=== PATIENT | female | born 1935 | race Caucasian/White ===

== ENCOUNTER 2016-03-21 08:52 | Emergency (ER) | payer MEDICARE, OTHER ==
--- NOTE | 2016-03-21 09:00 | ER Document Report ---
ED General - General Stated Complaint: FALL/NO COMPLAINT TRAVEL OUTSIDE OF THE [place] IN LAST 30 DAYS: No - HPI Patient complains to provider of: fall Notes: Patient is a resident of a local snf had a possible unwitnessed fall patient was found sitting on the floor by the staff patient is unaware if she fell or not. The staff at the snf is concerned that the patient may take her head. Otherwise there is no signs of trauma to the patient. Patient denies any head pain chest pain abdominal pain or extremity pain at this time. Alert no signs of distress - Related Data Allergies/Adverse Reactions: Penicillins Allergy (Verified 03/21/16 09:03) Past Medical History - Social History Smoking Status: Unknown if Ever Smoked Family History: Reviewed & Not Pertinent - Past Medical History Cardiac Medical History: Reports: Hx Hypercholesterolemia, Hx Hypertension Endocrine Medical History: Reports: Hx Diabetes Mellitus Type 2 Psychiatric Medical History: Reports: Hx Dementia, Hx Depression Past Surgical History: Reports: Hx Appendectomy, Hx Section - x 2, Hx Cholecystectomy - Immunizations Hx Diphtheria, Pertussis, Tetanus Vaccination: Yes Hx Pneumococcal Vaccination: 07/09/11 Review of Systems - Review of Systems -: Yes ROS unobtainable due to patient's medical condition - History of dementia Physical Exam - Vital signs Vitals: Temp Pulse Resp BP Pulse Ox 98 F 62 17 180/58 H 99 03/21/16 09:11 03/21/16 09:11 03/21/16 09:11 03/21/16 09:11 03/21/16 09:11 Interpretation: Hypertensive - General General appearance: Appears well, Alert - HEENT Head: Normocephalic, Atraumatic Eyes: Normal Pupils: No: PERRL - Both eyes postsurgical - Respiratory Respiratory status: No respiratory distress Chest status: Nontender Breath sounds: Normal Chest palpation: Normal - Cardiovascular Rhythm: Regular Heart sounds: Normal auscultation Murmur: No - Abdominal Inspection: Normal Distension: No distension Bowel sounds: Normal Tenderness: Nontender Organomegaly: No organomegaly - Back Back: Normal, Nontender - Extremities General upper extremity: Normal inspection, Nontender, Normal color, Normal ROM , Normal temperature General lower extremity: Normal inspection, Nontender, Normal color, Normal ROM , Normal temperature - Neurological Neuro grossly intact: Yes Jose Coma Scale Eye Opening: Spontaneous [place] Coma Scale Verbal: Confused Jose Coma Scale Motor: Obeys Commands Jose Coma Scale Total: 14 Speech: Normal Sensory: Normal - Psychological Associated symptoms: Normal affect, Normal mood - Skin Skin Temperature: Warm Skin Moisture: Dry Skin Color: Normal Course - Re-evaluation Re-evalutation: 03/21/16 08:59 No signs of trauma noted serious etiology seen because patient's dementia unaware of events and will CAT scan the patient's head to rule out any intracranial pathology if negative patient will be discharged back to snf. 03/21/16 13:17 - Vital Signs Vital signs: Temp Pulse Resp BP Pulse Ox 98 F 62 17 180/58 H 99 03/21/16 09:11 03/21/16 09:11 03/21/16 09:11 03/21/16 09:11 03/21/16 09:11 Discharge - Discharge Clinical Impression: Fall Qualifiers: Encounter type: initial encounter Qualified Code(s): W19.XXXA - Unspecified fall, initial encounter Dementia Qualifiers: Dementia type: unspecified type Dementia behavioral disturbance: without behavioral disturbance Qualified Code(s): F03.90 - Unspecified dementia without behavioral disturbance Condition: Fair Disposition: HOME-SNF (ED ONLY) Additional Instructions: Patient's CT of the head was negative for any acute trauma. Please monitor patient and create an environment to prevent falls. Have patient follow-up with her primary care physician in one week. Referrals: SUSHANT SHAH PA-C [Primary Care Provider] - Follow up in 3-5 days
[2016-03-21 09:17] VITALS: BP 180/58
== END 2016-03-21 10:00 ==
LOC: ER 08:52
DX: Z04.3 Encounter for examination and observation following other accident (principal); F03.90 Unspecified dementia, unspecified severity, without behavioral disturbance, psychotic disturbance, mood disturbance, and anxiety; I10 Essential (primary) hypertension; E11.9 Type 2 diabetes mellitus without complications; Z88.0 Allergy status to penicillin
CPT/HCPCS: 70450; 99285

== ENCOUNTER 2016-05-05 08:34 | Emergency (ER) | payer MEDICARE, OTHER ==
--- NOTE | 2016-05-05 08:57 | ER Document Report ---
ED Medical Screen (RME) - General Stated Complaint: ALTERED MENTAL STATUS Notes: Patient is a 80-year-old female presents saying she feels sluggish and does not feel right and was referred over by her alf. Past medical history significant for dementia, diabetes, hypertension, hyperlipidemia. Denies any other complaints time denies any pain, shortness of breath, headache, any weakness Past medical history received from outside facility records without any evidence of history of of coronary artery disease or stroke. TRAVEL OUTSIDE OF THE [place] IN LAST 30 DAYS: No - Related Data Allergies/Adverse Reactions: Penicillins Allergy (Verified 05/05/16 08:52) Past Medical History - Past Medical History Cardiac Medical History: Reports: Hx Hypercholesterolemia, Hx Hypertension Endocrine Medical History: Reports: Hx Diabetes Mellitus Type 2 Psychiatric Medical History: Reports: Hx Dementia, Hx Depression Past Surgical History: Reports: Hx Appendectomy, Hx Section - x 2, Hx Cholecystectomy - Immunizations Hx Diphtheria, Pertussis, Tetanus Vaccination: Yes Review of Systems - Review of Systems -: Yes ROS unobtainable due to patient's medical condition Physical Exam - Vital signs Vitals: Pulse Resp BP Pulse Ox 55 L 16 131/48 H 100 05/05/16 08:34 05/05/16 08:34 05/05/16 08:34 05/05/16 08:34 - Notes Notes: PHYSICAL EXAM GENERAL: Alert, interacts well. Cooperative and follows commands HEAD: Normocephalic, atraumatic. EYES: Post surgical changes to pupils ENT: Oral mucosa moist, tongue midline. NECK: Full range of motion. Supple. Trachea midline. LUNGS: Clear to auscultation bilaterally, no wheezes, rales, or rhonchi. No respiratory distress. HEART: Regular rate and rhythm. No murmurs, gallops, or rubs. ABDOMEN: Soft, nondistended, nontender. No guarding, rebound, or rigidity.. Bowel sounds present in all 4 quadrants. EXTREMITIES: Moves all 4 extremities spontaneously. No edema, radial and dorsalis pedis pulses 2/4 bilaterally. No cyanosis. No evidence of pronator drift. NEUROLOGICAL: Alert and oriented x3. Normal speech. GCS 14, confused PSYCH: Normal affect, normal mood. SKIN: Warm, dry, normal turgor. No rashes or lesions noted. Course - Re-evaluation Re-evalutation: 05/05/16 11:24 Patient is a 80-year-old female who was sent over by her alf with a complaint of altered mental status but per patient that she just didn't feel that this morning. Per EMS she was alert and cooperative although confused but able to respond and communicate. While in the emergency department she is alert and oriented to person and place with a GCS of 14. Comparison to previous documentation shows that the patient is at her baseline mental status. No concerns for hypoglycemia with blood glucose of 104. No concern for stroke or TIA with equal strength, sensation symmetrical facial expression, negative pronator drift. However chest x-ray does reveal a possible developing lower lobe infiltrate which could be concerning for pneumonia. At this time patient is afebrile, hemodynamically stable and in no acute distress. Given patient's age and location of infiltrate will treat prophylactically with antibiotics. Patient can follow-up with her PCP - Vital Signs Vital signs: Temp Pulse Resp BP Pulse Ox 98.0 F 55 L 21 H 143/52 H 100 05/05/16 08:44 05/05/16 08:34 05/05/16 10:02 05/05/16 10:02 05/05/16 10:02 - Laboratory Result Diagrams: 05/05/16 08:46 05/05/16 08:46 Laboratory results interpreted by me: 05/05/16 05/05/16 05/05/16 08:46 08:46 09:28 RBC 3.64 L Hgb 11.1 L Hct 32.9 L RDW 14.6 H BUN 23 H Urine Glucose (UA) 150 H - Diagnostic Test Radiology reviewed: Image reviewed, Reports reviewed - EKG Interpretation by Me EKG shows normal: Sinus rhythm Rate: Normal Rhythm: NSR When compared to previous EKG there are: No significant change Doctor's Discharge - Discharge Clinical Impression: Cough Condition: Good Disposition: HOME-ASSISTED LIVING Additional Instructions: PNEUMONIA: Your examination indicates that you have pneumonia. This is an infection of the lung tissue, usually caused by bacteria or a virus. Symptoms include cough, fever, shaking chills, chest pain, shortness of breath, and coughing up bloody sputum. Treatment for bacterial pneumonia includes rest, antibiotics for 10 to 14 days, increasing your clear liquid intake, a cool mist humidifier at your bedside, and fever medication. Often, a repeat chest X-ray is performed in a few weeks--even if you feel better--to ascertain whether the infection has completely resolved and no underlying lung problem is present. You should call the physician if you develop persistent vomiting, high fever that does not respond to fever medication, increasing shortness of breath , confusion, or lethargy. Also, failure to improve within two to three days is an indication for re-examination. ANTIBIOTIC THERAPY: You have been given an antibiotic prescription. It's important that you take all the medication, unless instructed otherwise by your physician. Failure to complete the entire course can result in relapse of your condition. Common side effects of antibiotics include nausea, intestinal cramping, or diarrhea. Women may develop vaginal yeast infections, and babies can get yeast (thrush) in the mouth following the use of antibiotics. Contact your physician if you develop significant side effects from this medication. Allergy to this antibiotic can result in hives, wheezing, faintness, or itching. If symptoms of allergy occur, stop the medication and call the doctor. AZITHROMYCIN: Azithromycin (Zithromax) is a broad spectrum antibiotic in the same class as erythromycin. It can treat a variety of bacterial infections, but is most frequently used for respiratory infections. Azithromycin is extremely long-lasting. It accumulates in body tissues and continues to kill bacteria for many days. In order to improve absorption, Azithromycin should be taken at least one hour before or two hours after a meal. It does not have the same strong tendency to upset the stomach as erythromycin and is usually very well tolerated. Patients who have had a rash or other true allergic reactions to erythromycin should not take this medication. Call if you develop gastrointestinal distress, severe diarrhea, rash, hives, itching, or shortness of breath. USE OF ACETAMINOPHEN (Tylenol): Acetaminophen may be taken for pain relief or fever control. It's much safer than aspirin, offering a wider range of "safe" dosages. It is safe during . Some brand names are Tylenol, Panadol, Datril, Anacin 3, Tempra, and Liquiprin. Acetaminophen can be repeated every four hours. The following are maximum recommended dosages: WEIGHT Dose Drops Elixir Chewable( 80mg) (LBS.) drprs=droppers tsp=teaspoon 6 40 mg 0.4 ml (1/2) 6-11 80 mg 0.8 ml (full) tsp 1 tab 12-16 120 mg 1 1/2 drprs 3/4 tsp 1 1/2 tabs 17-23 160 mg 2 drprs 1 tsp 2 tabs 24-30 240 mg 3 drprs 1 1/2 tsp 3 tabs 30-35 320 mg 2 tsp 4 tabs 36-41 360 mg 2 1/4 tsp 4 1/2 tabs 42-47 400 mg 2 1/2 tsp 5 tabs 48-53 480 mg 3 tsp 6 tabs 54-59 520 mg 3 1/4 tsp 6 1/2 tabs 60-64 560 mg 3 1/2 tsp 7 tabs 65-70 600 mg 3 3/4 tsp 7 1/2 tabs 71-76 640 mg 4 tsp 8 tabs 77-82 720 mg 4 1/2 tsp 9 tabs 83-88 800 mg 5 tsp 10 tabs >89 pounds or adults 650 mg to 900 mg Acetaminophen can be repeated every four hours. Maximum dose not to exceed 4000 mg a day. These maximum recommended dosages are slightly higher than the dosages written on the product container, but these dosages are very safe and below the toxic dosage for acetaminophen. FOLLOW-UP CARE: If you have been referred to a physician for follow-up care, call the physician s office for an appointment as you were instructed or within the next two days. If you experience worsening or a significant change in your symptoms, notify the physician immediately or return to the Emergency Department at any time for re-evaluation. Prescriptions: Azithromycin [Zithromax 250 mg Tablet] 250 mg PO ASDIR PRN #6 tablet PRN Reason: Forms: Elevated Blood Pressure Referrals: SUSHANT SHAH PA-C [Primary Care Provider] - Follow up as needed
[2016-05-05 09:06] LABS: ABSOLUTE EOSINOPHILS # (AUTO) 0.4 10^3/uL (0.0-0.6); ABSOLUTE LYMPHOCYTES (AUTO) 2.2 10^3/uL (0.5-4.7); ABSOLUTE MONOCYTES (AUTO) 0.3 10^3/uL (0.1-1.4); ABSOLUTE NEUT (AUTO) 4.2 10^3/uL (1.7-8.2); BASOPHILS % (AUTO) 0.6 % (0-2); EOSINOPHILS % (AUTO) 5.4 % (0-6); HEMATOCRIT 32.9 % (36.0-47.0); HEMOGLOBIN 11.1 g/dL (12.0-15.5); HGB HCT DIFFERENCE 0.4; LYMPHOCYTES % (AUTO) 30.5 % (13-45); MEAN CORPUSCULAR HEMOGLOBIN 30.6 pg (27.0-33.4); MEAN CORPUSCULAR HGB CONC 33.8 g/dL (32.0-36.0); MEAN CORPUSCULAR VOLUME 91 fl (80-97); MONOCYTES % (AUTO) 4.5 % (3-13); RED BLOOD COUNT 3.64 10^6/uL (3.72-5.28); RED CELL DISTRIBUTION WIDTH 14.6 % (11.5-14.0); WHITE BLOOD COUNT 7.1 10^3/uL (4.0-10.5)
[2016-05-05 09:17] LABS: ALANINE AMINOTRANSFERASE 16 U/L (9-52); ALKALINE PHOSPHATASE 108 U/L (38-126); ANION GAP 9 (5-19); ASPARTATE AMINO TRANSFERASE 19 U/L (14-36); BILIRUBIN,TOTAL 0.8 mg/dL (0.2-1.3); BLOOD UREA NITROGEN 23 mg/dL (7-20); CALCIUM 9.8 mg/dL (8.4-10.2); CARBON DIOXIDE 27 mmol/L (22-30); CHLORIDE 105 mmol/L (98-107); CREATININE RESULT 0.89 mg/dL (0.52-1.25); GLUCOSE 88 mg/dL (75-110); POTASSIUM 4.1 mmol/L (3.6-5.0); SODIUM 141.3 mmol/L (137-145); TOTAL PROTEIN 7.3 g/dL (6.3-8.2)
[2016-05-05 09:59] LABS: APPEARANCE,URINE SLIGHTLY-CLOUDY; BILIRUBIN,URINE NEGATIVE (NEGATIVE); GLUCOSE, URINE 150 mg/dL (NEGATIVE); KETONES,URINE NEGATIVE (NEGATIVE); LEUKOCYTE ESTERASE,URINE NEGATIVE (NEGATIVE); NITRITE,URINE NEGATIVE (NEGATIVE); PROTEIN,URINE NEGATIVE (NEGATIVE); URINE SPECIFIC GRAVITY 1.013; UROBILINOGEN,URINE NEGATIVE mg/dL (<2.0)
[2016-05-05 14:41] VITALS: BP 127/59
--- NOTE | 2016-05-06 08:18 | EKG REPORT ---
SEVERITY:- BORDERLINE ECG - SINUS RHYTHM BORDERLINE T WAVE ABNORMALITIES : Confirmed by: Rekha Smith MD 06-May-2016 08:16:57
== END 2016-05-05 15:25 | disposition home health service (06) ==
LOC: ER 08:34
DX: R05 Cough (principal); R41.82 Altered mental status, unspecified; E78.00 Pure hypercholesterolemia, unspecified; I10 Essential (primary) hypertension; E11.9 Type 2 diabetes mellitus without complications; F03.90 Unspecified dementia, unspecified severity, without behavioral disturbance, psychotic disturbance, mood disturbance, and anxiety; Z90.49 Acquired absence of other specified parts of digestive tract
CPT/HCPCS: 36415; 71020; 80053; 81001; 82962; 85025; 87086; 93005; 93010; 99285

== ENCOUNTER 2016-06-26 17:50 | Emergency (ER) | payer MEDICARE, OTHER ==
--- NOTE | 2016-06-26 18:09 | ER Document Report ---
ED Fever - General Chief Complaint: Fever Stated Complaint: FEVER Notes: The patient is a 80-year-old female, past medical history dementia, diabetes, hypertension, seizures, presents from [facility] after the care home staff noticed that she is having generalized weakness earlier today. Patient also has a fever up to 100.6 and was given 975 mg Tylenol by EMS. The patient is AAO 2, but she denies any complaints at this time. Denies cough, shortness of breath, chest pain, headache, neck stiffness, dysuria or rash. TRAVEL OUTSIDE OF THE [place] IN LAST 30 DAYS: No - Related Data Allergies/Adverse Reactions: Penicillins Allergy (Verified 05/05/16 08:52) Past Medical History - General Information source: Patient - Social History Smoking Status: Unknown if Ever Smoked Family History: Reviewed & Not Pertinent - Past Medical History Cardiac Medical History: Reports: Hx Hypercholesterolemia, Hx Hypertension Endocrine Medical History: Reports: Hx Diabetes Mellitus Type 2 Psychiatric Medical History: Reports: Hx Dementia, Hx Depression Past Surgical History: Reports: Hx Appendectomy, Hx Section - x 2, Hx Cholecystectomy - Immunizations Hx Diphtheria, Pertussis, Tetanus Vaccination: Yes Hx Pneumococcal Vaccination: 07/09/11 Review of Systems - Review of Systems Notes: REVIEW OF SYSTEMS: CONSTITUTIONAL: +fevers, -chills EENT: -eye pain, -difficulty swallowing, -nasal congestion CARDIOVASCULAR:-chest pain, -syncope. RESPIRATORY: -cough, -SOB GASTROINTESTINAL: -abdominal pain, - nausea, -vomiting, -diarrhea GENITOURINARY: -dysuria, -hematuria MUSCULOSKELETAL: -back pain, -neck pain SKIN: -rash or skin lesions. HEMATOLOGIC: -easy bruising or bleeding. LYMPHATIC: -swollen, enlarged glands. NEUROLOGICAL: -altered mental status or loss of consciousness, -headache, + generalized weakness PSYCHIATRIC: -anxiety, -depression. ALL OTHER SYSTEMS REVIEWED AND NEGATIVE. Physical Exam - Vital signs Vitals: Resp 12 06/26/16 18:03 - Notes Notes: PHYSICAL EXAMINATION: GENERAL: Well-appearing and in no acute distress. HEAD: Atraumatic, normocephalic. EYES: Pupils equal round and reactive to light, extraocular movements intact, sclera anicteric, conjunctiva are normal. ENT: nares patent, oropharynx clear without exudates. Moist mucous membranes. NECK: Normal range of motion, supple without lymphadenopathy LUNGS: Breath sounds clear to auscultation bilaterally and equal. No wheezes rales or rhonchi. HEART: Regular rate and rhythm without murmurs ABDOMEN: Soft, nontender, normoactive bowel sounds. No guarding, no rebound. No masses appreciated. EXTREMITIES: Normal range of motion, no pitting or edema. No cyanosis. NEUROLOGICAL: Cranial nerves grossly intact. Normal speech, normal gait. Normal sensory, motor, and reflex exams. 5/5 strength in all 4 extremities. PSYCH: Normal mood, normal affect. SKIN: Warm, Dry, normal turgor, no rashes or lesions noted. Course - Re-evaluation Re-evalutation: Patient with fever, but no source on evaluation. She appears very well in the emergency room and her blood pressure remains normal. Her lactate is also normal. Will discharge back to the care home with Tylenol, Motrin and instructions to stay hydrated with strict return precautions. - Vital Signs Vital signs: Temp Pulse Resp BP Pulse Ox 97.8 F 19 120/43 L 97 06/26/16 21:04 06/26/16 22:02 06/26/16 22:02 06/26/16 22:02 - Laboratory Result Diagrams: 06/26/16 18:10 06/26/16 19:35 Laboratory results interpreted by me: 06/26/16 06/26/16 06/26/16 18:10 19:35 19:35 WBC 11.4 H RBC 3.49 L Hgb 10.5 L Hct 31.5 L RDW 15.0 H Seg Neutrophils % 81.6 H Lymphocytes % 12.7 L Absolute Neutrophils 9.4 H Chloride 111 H BUN 26 H Glucose 154 H NT-Pro-B Natriuret Pep 722 H Lipase 15.5 L - Diagnostic Test Radiology reviewed: Image reviewed, Reports reviewed - EKG Interpretation by Me EKG shows normal: Sinus rhythm, [place], Intervals, QRS Complexes, ST-T Waves Discharge - Discharge Clinical Impression: Fever Qualifiers: Fever type: unspecified Qualified Code(s): R50.9 - Fever, unspecified Condition: Good Disposition: HOME-SNF (ED ONLY) Additional Instructions: Your lab work, chest x-ray and urine did not show any cause for your fever. You appeared very well in the emergency room. Continue Tylenol and Motrin to help with fever symptoms and return to the emergency room if he have worsening symptoms. FEVER: Fever is the body's reaction to infection. Fever can also occur with illnesses that create fever-producing substances in the body. By itself, fever is not harmful. It helps the body fight invading germs. We are more concerned with: (1) What's causing the fever? (2) How can we keep you more comfortable until the fever goes away? Early in an illness, symptoms are often so vague that a diagnosis can't be made. If the doctor hasn't identified a clear cause for your fever, you will probably develop new symptoms within the next two days. Contact the doctor if you develop severe worsening headache, rash, chest pain, cough with yellow or green sputum, difficulty breathing, abdominal pain, or other new symptoms. There is no reason to treat a fever if you're comfortable. If the fever is causing aches, headache, and fatigue, you can treat it with ibuprofen (Advil , Nuprin, etc) or acetaminophen (Tylenol). Follow the directions on the bottle. Get plenty of liquids (three quarts per day). Rest. Physical work or sports will raise the temperature higher and make you feel much worse. Dress lightly. If you're chilling, this means the temperature is trying to go higher. Take ibuprofen or acetaminophen. When you feel sweaty and "feverish" the temperature is coming down. If the fever doesn't go away within two days or if you become more ill, call the doctor or return at once for re-examination. NORMAL EXAM AND WORKUP: At this time, with the exception of fever, your examination and workup show no significant abnormality. No significant abnormal physical findings were noted. All laboratory, EKG, and imaging (x-ray, CT scans, ultrasound) studies that were ordered show no significant abnormality. Although your examination and all studies that were ordered showed no significant abnormal finding, there are no examinations and no studies that are 100% accurate. There is always the possibility that some abnormality could exist and not be detected with physical examination or within the limits and capabilities of laboratory and other studies. You should return or follow up as you were instructed on your visit today for further evaluation if your symptoms do not resolve. VIRAL SYNDROME: The physician has diagnosed a likely viral infection. Viruses not only cause "colds," but can cause many different symptoms including generalized aching, fever, headache, cough, diarrhea, nausea, vomiting, and fatigue. The treatment, for the most part, is simply relief of symptoms. This means that antibiotics are usually not given. Rest, fluids, pain medications and, occasionally, medication for the specific symptoms that are most bothersome will be prescribed. Use good handwashing to avoid passing the virus to others. Shared toys should be cleaned with disinfectant. Clean the toilets, sinks, and counter surfaces in bathrooms. Launder clothing in hot water. Contact the physician if you develop any new or unusual symptoms such as severe headache, stiff neck, high fever, chest pain, productive cough, or shortness of breath. You should be rechecked if you don't see marked improvement within seven to 10 days. USE OF ACETAMINOPHEN (Tylenol): Acetaminophen may be taken for pain relief or fever control. It's much safer than aspirin, offering a wider range of "safe" dosages. It is safe during . Some brand names are Tylenol, Panadol, Datril, Anacin 3, Tempra, and Liquiprin. Acetaminophen can be repeated every four hours. The following are maximum recommended dosages: WEIGHT Dose Drops Elixir Chewable( 80mg) (LBS.) drprs=droppers tsp=teaspoon 6 40 mg 0.4 ml (1/2) 6-11 80 mg 0.8 ml (full) tsp 1 tab 12-16 120 mg 1 1/2 drprs 3/4 tsp 1 1/2 tabs 17-23 160 mg 2 drprs 1 tsp 2 tabs 24-30 240 mg 3 drprs 1 1/2 tsp 3 tabs 30-35 320 mg 2 tsp 4 tabs 36-41 360 mg 2 1/4 tsp 4 1/2 tabs 42-47 400 mg 2 1/2 tsp 5 tabs 48-53 480 mg 3 tsp 6 tabs 54-59 520 mg 3 1/4 tsp 6 1/2 tabs 60-64 560 mg 3 1/2 tsp 7 tabs 65-70 600 mg 3 3/4 tsp 7 1/2 tabs 71-76 640 mg 4 tsp 8 tabs 77-82 720 mg 4 1/2 tsp 9 tabs 83-88 800 mg 5 tsp 10 tabs >89 pounds or adults 650 mg to 900 mg Acetaminophen can be repeated every four hours. Maximum dose not to exceed 4000 mg a day. These maximum recommended dosages are slightly higher than the dosages written on the product container, but these dosages are very safe and below the toxic dosage for acetaminophen. FOLLOW-UP CARE: If you have been referred to a physician for follow-up care, call the physician s office for an appointment as you were instructed or within the next two days. If you experience worsening or a significant change in your symptoms, notify the physician immediately or return to the Emergency Department at any time for re-evaluation.
[2016-06-26 18:38] LABS: ABSOLUTE EOSINOPHILS # (AUTO) 0.2 10^3/uL (0.0-0.6); ABSOLUTE LYMPHOCYTES (AUTO) 1.5 10^3/uL (0.5-4.7); ABSOLUTE MONOCYTES (AUTO) 0.4 10^3/uL (0.1-1.4); ABSOLUTE NEUT (AUTO) 9.4 10^3/uL (1.7-8.2); BASOPHILS % (AUTO) 0.3 % (0-2); EOSINOPHILS % (AUTO) 1.9 % (0-6); HEMATOCRIT 31.5 % (36.0-47.0); HEMOGLOBIN 10.5 g/dL (12.0-15.5); LYMPHOCYTES % (AUTO) 12.7 % (13-45); MEAN CORPUSCULAR HEMOGLOBIN 29.9 pg (27.0-33.4); MEAN CORPUSCULAR HGB CONC 33.2 g/dL (32.0-36.0); MEAN CORPUSCULAR VOLUME 90 fl (80-97); MONOCYTES % (AUTO) 3.5 % (3-13); RED BLOOD COUNT 3.49 10^6/uL (3.72-5.28); SEGMENTED NEUTROPHILS % (AUTO) 81.6 % (42-78); WHITE BLOOD COUNT 11.4 10^3/uL (4.0-10.5)
[2016-06-26 20:11] LABS: ALANINE AMINOTRANSFERASE 20 U/L (9-52); ALBUMIN 3.7 g/dL (3.5-5.0); ALKALINE PHOSPHATASE 97 U/L (38-126); ANION GAP 12 (5-19); ASPARTATE AMINO TRANSFERASE 18 U/L (14-36); BILIRUBIN,DIRECT 0.3 mg/dL (0.0-0.4); BILIRUBIN,TOTAL 0.8 mg/dL (0.2-1.3); BLOOD UREA NITROGEN 26 mg/dL (7-20); CALCIUM 9.3 mg/dL (8.4-10.2); CARBON DIOXIDE 22 mmol/L (22-30); CHLORIDE 111 mmol/L (98-107); CREATINE KINASE 36 U/L (30-135); CREATININE RESULT 0.76 mg/dL (0.52-1.25); GLUCOSE 154 mg/dL (75-110); LIPASE 15.5 U/L (23-300); POTASSIUM 4.5 mmol/L (3.6-5.0); SODIUM 144.7 mmol/L (137-145); TOTAL PROTEIN 6.6 g/dL (6.3-8.2)
[2016-06-26 20:23] LABS: TROPONIN I < 0.012 ng/mL
--- NOTE | 2016-06-26 21:21 | EKG REPORT ---
SEVERITY:- NORMAL ECG - SINUS RHYTHM : Confirmed by: Manoj Kent MD 26-Jun-2016 21:20:52
[2016-06-26 21:38] LABS: APPEARANCE,URINE SLIGHTLY-CLOUDY; BILIRUBIN,URINE NEGATIVE (NEGATIVE); GLUCOSE, URINE NEGATIVE (NEGATIVE); KETONES,URINE NEGATIVE (NEGATIVE); LEUKOCYTE ESTERASE,URINE NEGATIVE (NEGATIVE); NITRITE,URINE NEGATIVE (NEGATIVE); PROTEIN,URINE NEGATIVE (NEGATIVE); URINE SPECIFIC GRAVITY 1.013; UROBILINOGEN,URINE NEGATIVE mg/dL (<2.0)
[2016-06-27 00:07] VITALS: BP 128/44
== END 2016-06-26 23:20 ==
LOC: ER 17:50
DX: R50.9 Fever, unspecified (principal); F03.90 Unspecified dementia, unspecified severity, without behavioral disturbance, psychotic disturbance, mood disturbance, and anxiety; E11.9 Type 2 diabetes mellitus without complications; I10 Essential (primary) hypertension; R56.9 Unspecified convulsions
CPT/HCPCS: 36415; 71010; 80048; 80076; 81001; 82550; 83605; 83690; 83880; 84484; 85025; 87040; 93005; 93010; 99285

== ENCOUNTER 2016-10-27 08:51 | Emergency (ER) | payer MEDICARE, OTHER ==
--- NOTE | 2016-10-27 09:09 | ER Document Report ---
ED Neuro Symptoms/Deficit - General Mode of Arrival: Medic Information source: Patient TRAVEL OUTSIDE OF THE [place] IN LAST 30 DAYS: No - HPI Patient complains to provider of: Facial Droop, Speech Impairment Associated symptoms: Other - see above <CATHY CONNELLY - Last Filed: 10/27/16 09:13> <SUZAN MENESES - Last Filed: 10/27/16 17:01> <DOTTIE MARTINI - Last Filed: 10/27/16 19:34> - General Stated Complaint: POSSIBLE STROKE Time Seen by Provider: 10/27/16 09:03 Notes: Patient is a 80 year old female who presents to the ED from [facility] with complaints of the patient waking up 20 min [employer] with right sided facial droop, her right pupil being smaller and not reactive and babbling. Patient is normally oriented and talking. Patient states she feels tired. (CATHY CONNELLY) - Related Data Allergies/Adverse Reactions: Penicillins Allergy (Verified 10/27/16 09:36) Past Medical History - General Information source: Patient - Social History Smoking Status: Unknown if Ever Smoked Family History: Reviewed & Not Pertinent - Past Medical History Cardiac Medical History: Reports: Hx Hypercholesterolemia, Hx Hypertension Endocrine Medical History: Reports: Hx Diabetes Mellitus Type 2 Psychiatric Medical History: Reports: Hx Dementia, Hx Depression Past Surgical History: Reports: Hx Appendectomy, Hx Section - x 2, Hx Cholecystectomy - Immunizations Hx Diphtheria, Pertussis, Tetanus Vaccination: Yes Hx Pneumococcal Vaccination: 07/09/11 <CATHY CONNELLY - Last Filed: 10/27/16 09:13> Review of Systems - Review of Systems Constitutional: Malaise EENT: No symptoms reported Cardiovascular: No symptoms reported Respiratory: No symptoms reported Gastrointestinal: No symptoms reported Genitourinary: No symptoms reported Female Genitourinary: No symptoms reported Musculoskeletal: No symptoms reported Skin: No symptoms reported Hematologic/Lymphatic: No symptoms reported Neurological/Psychological: No symptoms reported <CATHY CONNELLY - Last Filed: 10/27/16 09:13> Physical Exam - General General appearance: Appears well, Alert In distress: None - HEENT Head: Normocephalic, Atraumatic Eyes: Other - cateract on right pupil, left pupil is irregular and off center - Respiratory Respiratory status: No respiratory distress Breath sounds: Normal - Cardiovascular Rhythm: Regular Heart sounds: Normal auscultation Murmur: No - Abdominal Inspection: Normal Distension: No distension Bowel sounds: Normal Tenderness: Nontender - Back Back: Normal - Extremities General upper extremity: Normal inspection, Normal ROM General lower extremity: Normal inspection, Normal ROM - Neurological Neuro grossly intact: Yes Cognition: Other - knows who her daughter is, knows she is in the hospital, moves all extremities appropriately, smiles symmetrically - Psychological Associated symptoms: Normal affect, Normal mood - Skin Skin Temperature: Warm Skin Moisture: Dry Skin Color: Normal <MARICELCATHY - Last Filed: 10/27/16 09:13> - Vital signs Vitals: Pulse Resp BP Pulse Ox 59 L 16 150/53 H 100 10/27/16 08:59 10/27/16 08:59 10/27/16 08:59 10/27/16 08:59 Course <MARICELCATHY - Last Filed: 10/27/16 09:13> - Laboratory Result Diagrams: 10/27/16 09:13 10/27/16 09:13 - Diagnostic Test Radiology reviewed: Image reviewed, Reports reviewed - Chest x-ray shows a stable chest. CT scan of the head shows an old fracture across the top of the skull. - EKG Interpretation by Me EKG shows normal: Sinus rhythm, [place], Intervals, ST-T Waves. abnormal: QRS Complexes - Borderline R-wave progression in the anterior leads Rate: Normal - 62 Rhythm: NSR When compared to previous EKG there are: No significant change - Transfer of Care Care transferred to following provider: Dr. Martini <SUZAN MENESES - Last Filed: 10/27/16 17:01> - Laboratory Result Diagrams: 10/27/16 09:13 10/27/16 09:13 <DOTTIE MARTINI - Last Filed: 10/27/16 19:34> - Re-evaluation Re-evalutation: 10/27/16 15:40 The nurses have been unable to obtain a urine specimen. They tried cathing her twice early on and there was no urine. I gave the patient a liter of IV fluids. At some point the patient had a diarrheal stool that looked like there was some blood in it and was quite foul-smelling. Again they attempted to get a urine specimen but the patient kicked them too much and would not allow it. ( SUZAN MENESES) 10/27/16 19:31 Sign-out from Dr. Meneses: 80-year-old female with AMS. Awaiting C. difficile culture and urinalysis. If these are negative, patient is safe for discharge to [facility]. C. difficile culture negative and urine does not show evidence UTI. Per signout instructions, patient will be discharged back to [facility]. (DOTTIE MARTINI) - Vital Signs Vital signs: Temp Pulse Resp BP Pulse Ox 59 L 10 L 192/66 H 100 10/27/16 08:59 10/27/16 19:01 10/27/16 19:01 10/27/16 10:01 - Laboratory Laboratory results interpreted by me: 10/27/16 10/27/16 10/27/16 09:13 09:13 18:45 RBC 3.35 L Hgb 10.1 L Hct 30.9 L RDW 15.0 H Chloride 110 H BUN 23 H Glucose 72 L Urine Glucose (UA) >=500 H Urine Blood SMALL H - Transfer of Care Notes: 10/27/16 17:02 Patient is pending C. difficile testing on her stool. There were no WBCs, the stool was heme positive. If she is negative for C. difficile toxins, she can be discharged back to [facility] and follow-up with her primary care provider tomorrow. (SUZAN MENESES) Discharge <CATHY CONNELLY - Last Filed: 10/27/16 09:13> <SUZAN MENESES - Last Filed: 10/27/16 17:01> <DOTTIE MARTINI - Last Filed: 10/27/16 19:34> - Discharge Clinical Impression: Altered mental status Qualifiers: Altered mental status type: unspecified Qualified Code(s): R41.82 - Altered mental status, unspecified Dementia Qualifiers: Dementia type: unspecified type Dementia behavioral disturbance: without behavioral disturbance Qualified Code(s): F03.90 - Unspecified dementia without behavioral disturbance Diarrhea Qualifiers: Diarrhea type: unspecified type Qualified Code(s): R19.7 - Diarrhea, unspecified Condition: Stable Disposition: HOME, SELF-CARE Additional Instructions: NORMAL EXAM AND WORKUP: At this time, your examination and workup show no significant abnormality. No significant abnormal physical findings were noted. All laboratory, EKG, and imaging (x-ray, CT scans, ultrasound) studies that were ordered show no significant abnormality. Although your examination and all studies that were ordered showed no significant abnormal finding, there are no examinations and no studies that are 100% accurate. There is always the possibility that some abnormality could exist and not be detected with physical examination or within the limits and capabilities of laboratory and other studies. You should return or follow up as you were instructed on your visit today for further evaluation if your symptoms do not resolve. Forms: Elevated Blood Pressure Referrals: ELI DENTON MD [Primary Care Provider] - Follow up as needed Scribe Documentation - Scribe Written by Scribe:: dalia Garduno, 10/27/2016, 09 acting as scribe for :: Melania <CATHY CONNELLY - Last Filed: 10/27/16 09:13>
[2016-10-27 09:21] LABS: ABSOLUTE EOSINOPHILS # (AUTO) 0.2 10^3/uL (0.0-0.6); ABSOLUTE LYMPHOCYTES (AUTO) 1.8 10^3/uL (0.5-4.7); ABSOLUTE MONOCYTES (AUTO) 0.4 10^3/uL (0.1-1.4); ABSOLUTE NEUT (AUTO) 4.6 10^3/uL (1.7-8.2); BASOPHILS % (AUTO) 0.5 % (0-2); EOSINOPHILS % (AUTO) 2.7 % (0-6); HEMATOCRIT 30.9 % (36.0-47.0); HEMOGLOBIN 10.1 g/dL (12.0-15.5); HGB HCT DIFFERENCE -0.6; LYMPHOCYTES % (AUTO) 26.1 % (13-45); MEAN CORPUSCULAR HGB CONC 32.5 g/dL (32.0-36.0); MEAN CORPUSCULAR VOLUME 92 fl (80-97); MONOCYTES % (AUTO) 5.1 % (3-13); RED BLOOD COUNT 3.35 10^6/uL (3.72-5.28); SEGMENTED NEUTROPHILS % (AUTO) 65.6 % (42-78); WHITE BLOOD COUNT 7.1 10^3/uL (4.0-10.5)
--- NOTE | 2016-10-27 09:21 | RADIOLOGY REPORT (SQ) ---
EXAM DESCRIPTION: CT HEAD WITHOUT COMPLETED DATE/TIME: 10/27/2016 9:03 am REASON FOR STUDY: bed 2 stroke alert COMPARISON: CT brain 03/21/2016, 02/12/2016, 09/12/2015 TECHNIQUE: Axial images acquired through the brain without intravenous contrast. Images reviewed wi th bone, brain and subdural windows. Images stored on PACS. All CT scanners at this facility use dose modulation, iterative reconstruction, and/or weight based d osing when appropriate to reduce radiation dose to as low as reasonably achievable (ALARA). [facility]: Dose Right [facility]: CareDose [facility]: Dose Right [facility]: Teradose 4D [facility]: CCM Benchmark RADIATION DOSE: 63.7 mGy. LIMITATIONS: None. FINDINGS: VENTRICLES: Normal size and contour. CEREBRUM: No masses. No hemorrhage. No midline shift. No evidence for acute infarction. Spotty bifrontal and biparietal small vessel ischemic change, chronic. CEREBELLUM: No masses. No hemorrhage. No alteration of density. No evidence for acute infarction. EXTRAAXIAL SPACES: No fluid collections. No masses. ORBITS AND GLOBE: No intra- or extraconal masses. Normal contour of globe without masses. CALVARIUM: Nondisplaced left parietal hairline skull fracture, axial image 33. This is unchanged fro m previous studies. PARANASAL SINUSES: No fluid or mucosal thickening. SOFT TISSUES: No mass or hematoma. OTHER: Report discussed with Dr. Gold in the emergency room, 0910 hours, 10/27/2016 IMPRESSION: No acute findings COMMENT: Pertinent findings on the imaging study reported as a CRITICAL RESULT to Dr MENESES at09:10 on 10/27/2016. Category of Critical Result: CT stroke alert TECHNICAL DOCUMENTATION: JOB ID: [id number] Quality ID # 436: Final reports with documentation of one or more dose reduction techniques (e.g., Au tomated exposure control, adjustment of the mA and/or kV according to patient size, use of iterative reconstruction technique) 2010 [employer]- All Rights Reserved
[2016-10-27 09:25] LABS: PROTHROMBIN TIME 14.1 SEC (11.4-15.4)
[2016-10-27 09:36] LABS: ALANINE AMINOTRANSFERASE 22 U/L (9-52); ALBUMIN 4.1 g/dL (3.5-5.0); ALKALINE PHOSPHATASE 97 U/L (38-126); ANION GAP 10 (5-19); ASPARTATE AMINO TRANSFERASE 24 U/L (14-36); BILIRUBIN,DIRECT 0.4 mg/dL (0.0-0.4); BILIRUBIN,TOTAL 0.6 mg/dL (0.2-1.3); BLOOD UREA NITROGEN 23 mg/dL (7-20); CALCIUM 9.6 mg/dL (8.4-10.2); CARBON DIOXIDE 22 mmol/L (22-30); CHLORIDE 110 mmol/L (98-107); CREATINE KINASE 36 U/L (30-135); CREATININE RESULT 0.81 mg/dL (0.52-1.25); GLUCOSE 72 mg/dL (75-110); POTASSIUM 4.2 mmol/L (3.6-5.0); SODIUM 142.2 mmol/L (137-145); TOTAL PROTEIN 7.8 g/dL (6.3-8.2)
--- NOTE | 2016-10-27 09:40 | RADIOLOGY REPORT (SQ) ---
EXAM DESCRIPTION: CHEST SINGLE VIEW COMPLETED DATE/TIME: 10/27/2016 9:20 am REASON FOR STUDY: bed 2 stroke alert COMPARISON: Chest films 07/08/2011, 09/10/2013, 09/13/2015, 05/05/2016, 06/26/2016 EXAM PARAMETERS: NUMBER OF VIEWS: One view. TECHNIQUE: Single frontal radiographic view of the chest acquired. RADIATION DOSE: NA LIMITATIONS: None. FINDINGS: LUNGS AND PLEURA: Chronic increased interstitial markings at the bases MEDIASTINUM AND HILAR STRUCTURES: No masses. Contour normal. HEART AND VASCULAR STRUCTURES: Stable borderline cardiomegaly. Normal vasculature. BONES: No acute findings. Old posterior right 6th rib fracture HARDWARE: None in the chest. OTHER: No other significant finding. IMPRESSION: Borderline cardiomegaly. Stable minimal increased interstitial markings at both lung bases. TECHNICAL DOCUMENTATION: JOB ID: [id number]
[2016-10-27 09:53] LABS: CREATINE KINASE MB 0.43 ng/mL (<4.55)
[2016-10-27 09:58] LABS: TROPONIN I < 0.012 ng/mL
[2016-10-27] MEDS ORDERED: DEXTROSE 5%-LACTATED RINGERS 1,000 ML IV ONE (12:29)
--- NOTE | 2016-10-27 13:48 | EKG REPORT ---
SEVERITY:- DEFECTIVE ECG - ATRIAL FIBRILLATION BORDERLINE LEFT AXIS DEVIATION (NO) BORDERLINE R WAVE PROGRESSION, ANTERIOR LEADS BORDERLINE T ABNORMALITIES, ANTERIOR LEADS : Confirmed by: Manoj Kent MD 27-Oct-2016 13:46:40
[2016-10-27] MEDS ORDERED: LEVETIRACETAM 500 MG TABLET PO ONE (16:15)
[2016-10-27] MEDS ORDERED: LISINOPRIL 10 MG TABLET PO ONE (16:15)
--- NOTE | 2016-10-27 17:59 | EKG REPORT ---
SEVERITY:- BORDERLINE ECG - SINUS RHYTHM BORDERLINE R WAVE PROGRESSION, ANTERIOR LEADS : Confirmed by: Manoj Kent MD 27-Oct-2016 17:58:01
[2016-10-27 19:19] LABS: APPEARANCE,URINE CLEAR; BILIRUBIN,URINE NEGATIVE (NEGATIVE); GLUCOSE, URINE >=500 mg/dL (NEGATIVE); KETONES,URINE NEGATIVE (NEGATIVE); LEUKOCYTE ESTERASE,URINE NEGATIVE (NEGATIVE); NITRITE,URINE NEGATIVE (NEGATIVE); PROTEIN,URINE NEGATIVE (NEGATIVE); URINE SPECIFIC GRAVITY 1.007; UROBILINOGEN,URINE NEGATIVE mg/dL (<2.0)
[2016-10-27 21:19] VITALS: BP 125/50
== END 2016-10-27 21:26 | disposition home or self-care (01) ==
LOC: ER 08:51
DX: F03.90 Unspecified dementia, unspecified severity, without behavioral disturbance, psychotic disturbance, mood disturbance, and anxiety (principal); R19.7 Diarrhea, unspecified; R19.5 Other fecal abnormalities; R29.810 Facial weakness; R53.83 Other fatigue; I10 Essential (primary) hypertension; E11.9 Type 2 diabetes mellitus without complications; R53.81 Other malaise; H26.9 Unspecified cataract; Z88.0 Allergy status to penicillin
CPT/HCPCS: 93005 ×2; 99285; 51701; 96365; 36415; 87045; 89055; 87205; 82553; 82962; 82550; 85025; 85610; 85730; 82272; 80053; 81001; 84484; 87493 ×2; 71010; 70450; 93010 ×2; A9270 ×2

== ENCOUNTER 2016-12-23 13:04 | Emergency (ER) | payer MEDICARE, OTHER ==
--- NOTE | 2016-12-23 14:46 | RADIOLOGY REPORT (SQ) ---
EXAM DESCRIPTION: CT CERVICAL SPINE WITHOUT COMPLETED DATE/TIME: 12/23/2016 2:29 pm REASON FOR STUDY: fell hit head COMPARISON: 02/12/2016 TECHNIQUE: Axial images acquired through the cervical spine without intravenous contrast. Images re viewed with lung, soft tissue and bone windows. Reconstructed coronal and sagittal MPR images review ed. Images stored on PACS. All CT scanners at this facility use dose modulation, iterative reconstruction, and/or weight based d osing when appropriate to reduce radiation dose to as low as reasonably achievable (ALARA). [facility]: Dose Right [facility]: CareDose [facility]: Dose Right [facility]: Teradose 4D [facility]: Smart [employer] RADIATION DOSE: Up-to-date CT equipment and radiation dose reduction techniques were employed. CTDIv ol: 11.6 mGy. DLP: 219 mGy-cm. mGy. LIMITATIONS: None. FINDINGS: ALIGNMENT: Anatomic. MINERALIZATION: Normal. VERTEBRAL BODIES: No acute fracture. 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 Anterior bridging ost eophytes are present from C3 to C6. DISCS: No significant disc disease. FACETS, LATERAL MASSES, POSTERIOR ELEMENTS: No fractures. No dislocation. No acute findings. HARDWARE: None in the spine. VISUALIZED RIBS: No fractures. LUNG APICES AND SOFT TISSUES: No significant or acute findings. OTHER: No other significant finding. 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 TECHNICAL DOCUMENTATION: JOB ID: [id number] Quality ID # [id number]: Final reports with documentation of one or more dose reduction techniques (e.g., Au tomated exposure control, adjustment of the mA and/or kV according to patient size, use of iterative reconstruction technique) 2010 [employer]- All Rights Reserved
--- NOTE | 2016-12-23 14:53 | RADIOLOGY REPORT (SQ) ---
EXAM DESCRIPTION: CT HEAD WITHOUT COMPLETED DATE/TIME: 12/23/2016 2:29 pm REASON FOR STUDY: fell, hit head COMPARISON: 09/10/2013, 02/12/2016, 03/21/2016, 10/27/2016 CT brain MRI brain 09/11/2013 TECHNIQUE: Axial images acquired through the brain without intravenous contrast. Images reviewed wi th bone, brain and subdural windows. Images stored on PACS. All CT scanners at this facility use dose modulation, iterative reconstruction, and/or weight based d osing when appropriate to reduce radiation dose to as low as reasonably achievable (ALARA). [facility]: Dose Right [facility]: CareDose [facility]: Dose Right [facility]: Teradose 4D [facility]: [employer] RADIATION DOSE: Up-to-date CT equipment and radiation dose reduction techniques were employed. CTDIv ol: 64.6 mGy. DLP: 1034 mGy-cm. mGy. LIMITATIONS: None. FINDINGS: VENTRICLES: Prominent. CEREBRUM: No masses. No hemorrhage. No midline shift. Areas of low density in the white matter mos t likely due to chronic micro-vascular ischemic change. No evidence for acute infarction. CEREBELLUM: No masses. No hemorrhage. No alteration of density. No evidence for acute infarction. EXTRAAXIAL SPACES: Mild age-related involutional change. No fluid collections. No masses. ORBITS AND GLOBE: No intra- or extraconal masses. Normal contour of globe without masses. CALVARIUM: No fracture. PARANASAL SINUSES: No fluid or mucosal thickening. SOFT TISSUES: No mass or hematoma. OTHER: No other significant finding. IMPRESSION: MILD CHRONIC CHANGES OF ATROPHY AND MICROVASCULAR ISCHEMIA. NO ACUTE PROCESS. EVIDENCE OF ACUTE STROKE: NO. TECHNICAL DOCUMENTATION: JOB ID: [id number] Quality ID # 436: Final reports with documentation of one or more dose reduction techniques (e.g., Au tomated exposure control, adjustment of the mA and/or kV according to patient size, use of iterative reconstruction technique) 2010 [employer]- All Rights Reserved
--- NOTE | 2016-12-23 15:27 | ER Document Report ---
ED General - General Chief Complaint: Fall Stated Complaint: FALL/HEAD PAIN Time Seen by Provider: 12/23/16 13:09 Mode of Arrival: Medic Information source: Emergency Med Personnel Notes: This is a 81-year-old female with a history of dementia who is brought in from Health system after falling and hitting her head. There was no loss of consciousness. The fall was witnessed. The patient does not complain of any pain. TRAVEL OUTSIDE OF THE [place] IN LAST 30 DAYS: No - Related Data Allergies/Adverse Reactions: Penicillins Allergy (Verified 10/27/16 09:36) Home Medications: Current Home Medications Insulin Glargine,Hum.rec.anlog [Lantus] 20 unit SQ QAM 12/23/16 [History] Levetiracetam [Keppra Xr 500 mg Tab.sr] 500 mg PO BID 12/23/16 [History] Linagliptin [Tradjenta] 1 tab PO QAM 12/23/16 [History] Metformin HCl [Metformin HCl ER] 500 mg PO BID 12/23/16 [History] Mineral Oil/Petrolatum,White [Minerin Creme] 1 applic TOP BID 12/23/16 [History] Past Medical History - Social History Smoking Status: Unknown if Ever Smoked Chew tobacco use (# tins/day): No Frequency of alcohol use: None Drug Abuse: None Family History: Reviewed & Not Pertinent - Past Medical History Cardiac Medical History: Reports: Hx Hypercholesterolemia, Hx Hypertension Endocrine Medical History: Reports: Hx Diabetes Mellitus Type 2 Psychiatric Medical History: Reports: Hx Dementia, Hx Depression Past Surgical History: Reports: Hx Appendectomy, Hx Section - x 2, Hx Cholecystectomy - Immunizations Hx Diphtheria, Pertussis, Tetanus Vaccination: Yes Hx Pneumococcal Vaccination: 07/09/11 Physical Exam - Vital signs Vitals: Temp Pulse Resp BP Pulse Ox 97.7 F 62 18 123/45 L 96 12/23/16 13:09 12/23/16 13:09 12/23/16 13:09 12/23/16 13:09 12/23/16 13:09 Notes: Physical exam: GENERAL: Pleasant 81-year-old female, alert and answering questions, she does have dementia, no acute pain. HEAD: Atraumatic, normocephalic. EYES: Pupils equal round and reactive to light, extraocular movements intact, sclera anicteric, conjunctiva are normal. ENT: TMs normal, nares patent, oropharynx clear without exudates. Moist mucous membranes. NECK: Normal range of motion, supple without obvious mass or JVD. LUNGS: Breath sounds clear to auscultation bilaterally and equal. No wheezes rales or rhonchi. HEART: Regular rate and rhythm without murmurs, rubs or gallops. ABDOMEN: Soft, normoactive bowel sounds. No tenderness to palpation. No guarding, no rebound. No masses appreciated. EXTREMITIES: Normal range of motion, no pitting or edema. No clubbing or cyanosis. NEUROLOGICAL: Cranial nerves II through XII grossly intact. Normal speech, moving all extremities. PSYCH: Normal mood, normal affect. SKIN: Warm, Dry, normal turgor, no rashes or lesions noted. Course - Vital Signs Vital signs: Temp Pulse Resp BP Pulse Ox 97.7 F 62 18 123/45 L 96 12/23/16 13:09 12/23/16 13:09 12/23/16 13:09 12/23/16 13:09 12/23/16 13:09 - Diagnostic Test Radiology reviewed: Image reviewed, Reports reviewed - CT of the head and cervical spine show no acute injury Discharge - Discharge Clinical Impression: Contusion head Condition: Stable Disposition: HOME, SELF-CARE Additional Instructions: Thank you for choosing [facility] for your care. The examination and treatment you have received in the Emergency Department today has been rendered on an emergency basis only and is not intended to be a substitute for complete medical care. You should contact your follow-up physician as it is important that he or she examine you for any new or remaining problems. If given a copy of any lab tests or radiology reports, please bring them with you when you see your physician. If your problem worsens or new symptoms appear and you are unable to arrange prompt follow-up care, return to the Emergency Department. Specific signs to look out for: Mental status changes, pain Any other instructions: Continue current medicines, follow-up with primary care doctor Referrals: ELI DENTON MD [Primary Care Provider] - Follow up as needed
[2016-12-23 17:40] VITALS: BP 150/43
== END 2016-12-23 17:20 | disposition home health service (06) ==
LOC: ER 13:04
DX: S00.93XA Contusion of unspecified part of head, initial encounter (principal); W19.XXXA Unspecified fall, initial encounter; Y92.129 Unspecified place in nursing home as the place of occurrence of the external cause; F03.90 Unspecified dementia, unspecified severity, without behavioral disturbance, psychotic disturbance, mood disturbance, and anxiety; I10 Essential (primary) hypertension; E11.9 Type 2 diabetes mellitus without complications; Z88.0 Allergy status to penicillin
CPT/HCPCS: 70450; 72125; 82962; 99284

== ENCOUNTER 2016-12-23 18:37 | Emergency (ER) | payer MEDICARE, OTHER ==
[2016-12-23] MEDS ORDERED: DEXTROSE 50%-WATER 25 GM/50 ML DISP.SYRIN IV ONE (19:10)
[2016-12-23 19:23] LABS: ALANINE AMINOTRANSFERASE 17 U/L (9-52); ALKALINE PHOSPHATASE 100 U/L (38-126); ANION GAP 13 (5-19); ASPARTATE AMINO TRANSFERASE 21 U/L (14-36); BILIRUBIN,DIRECT 0.3 mg/dL (0.0-0.4); BILIRUBIN,TOTAL 0.4 mg/dL (0.2-1.3); BLOOD UREA NITROGEN 25 mg/dL (7-20); CALCIUM 9.5 mg/dL (8.4-10.2); CARBON DIOXIDE 22 mmol/L (22-30); CHLORIDE 110 mmol/L (98-107); GLUCOSE 54 mg/dL (75-110); POTASSIUM 4.6 mmol/L (3.6-5.0); SODIUM 144.7 mmol/L (137-145); TOTAL PROTEIN 7.2 g/dL (6.3-8.2)
--- NOTE | 2016-12-23 19:27 | ER Document Report ---
ED Blood Sugar Problem - General Chief Complaint: Low Blood Sugar Stated Complaint: BLOOD SUGAR PROBLEMS Time Seen by Provider: 12/23/16 18:49 Notes: The patient is a 81-year-old female who presents with hypoglycemia down to 35. She was seen in the emergency room for a fall and discharged back to [facility]. When she arrived back to [facility], she was confused and that is what her sugar was checked. Patient is awake and has no complaints at this time. She did not eat lunch or dinner. Denies chest pain, shortness of breath , nausea, vomiting or fevers. TRAVEL OUTSIDE OF THE [place] IN LAST 30 DAYS: No - Related Data Allergies/Adverse Reactions: Penicillins Allergy (Verified 10/27/16 09:36) Past Medical History - General Information source: Patient, Emergency Med Personnel - Social History Smoking Status: Unknown if Ever Smoked Frequency of alcohol use: None Drug Abuse: None Family History: Reviewed & Not Pertinent - Past Medical History Cardiac Medical History: Reports: Hx Hypercholesterolemia, Hx Hypertension Endocrine Medical History: Reports: Hx Diabetes Mellitus Type 2 Psychiatric Medical History: Reports: Hx Dementia, Hx Depression Past Surgical History: Reports: Hx Appendectomy, Hx Section - x 2, Hx Cholecystectomy - Immunizations Hx Diphtheria, Pertussis, Tetanus Vaccination: Yes Hx Pneumococcal Vaccination: 07/09/11 Review of Systems - Review of Systems Notes: REVIEW OF SYSTEMS: CONSTITUTIONAL: -fevers, -chills EENT: -eye pain, -difficulty swallowing, -nasal congestion CARDIOVASCULAR:-chest pain, -syncope. RESPIRATORY: -cough, -SOB GASTROINTESTINAL: -abdominal pain, - nausea, -vomiting, -diarrhea GENITOURINARY: -dysuria, -hematuria MUSCULOSKELETAL: -back pain, -neck pain SKIN: -rash or skin lesions. HEMATOLOGIC: -easy bruising or bleeding. LYMPHATIC: -swollen, enlarged glands. NEUROLOGICAL: -altered mental status or loss of consciousness, -headache, - neurologic symptoms PSYCHIATRIC: -anxiety, -depression. ALL OTHER SYSTEMS REVIEWED AND NEGATIVE. Physical Exam - Notes Notes: PHYSICAL EXAMINATION: GENERAL: Well-appearing, well-nourished and in no acute distress. HEAD: Atraumatic, normocephalic. EYES: Pupils equal round and reactive to light, extraocular movements intact, sclera anicteric, conjunctiva are normal. ENT: nares patent, oropharynx clear without exudates. Moist mucous membranes. NECK: Normal range of motion, supple without lymphadenopathy LUNGS: Breath sounds clear to auscultation bilaterally and equal. No wheezes rales or rhonchi. HEART: Regular rate and rhythm without murmurs ABDOMEN: Soft, nontender, normoactive bowel sounds. No guarding, no rebound. No masses appreciated. EXTREMITIES: Normal range of motion, no pitting or edema. No cyanosis. NEUROLOGICAL: Cranial nerves grossly intact. Normal speech, normal gait. Normal sensory and motor exams. PSYCH: Normal mood, normal affect. SKIN: Warm, Dry, normal turgor, no rashes or lesions noted. Course - Re-evaluation Re-evalutation: Patient appears in no acute distress. Her kidney function appears normal and her blood sugar improved after she ate food. Her hypoglycemia is most likely from not eating lunch or dinner. Will send back to [facility]. - Laboratory Result Diagrams: 12/23/16 16:50 Laboratory results interpreted by me: 12/23/16 12/23/16 12/23/16 16:50 18:50 20:35 Chloride 110 H BUN 25 H Glucose 54 L POC Glucose 49 L 252 H Discharge - Discharge Clinical Impression: Hypoglycemia Condition: Stable Disposition: HOME-ASSISTED LIVING Additional Instructions: Hypoglycemia You have suffered an episode of hypoglycemia (low blood sugar). Typical symptoms of hypoglycemia are shaking, sweating, headache, and confusion. When severe, unconsciousness or seizure may occur. Hypoglycemia occurs when a person taking insulin or diabetes pills has a change in the amount of blood sugar available -- due to exercise, decreased food intake, or alcohol. Should you feel symptoms of hypoglycemia again, immediately take some form of sugar such as sweetened juice. As the reaction subsides, eat a complex carbohydrate such as bread. If possible, check your blood sugar using a chemical strip. If episodes are occurring without obvious explanation, contact your physician for further evaluation.
[2016-12-24 00:52] VITALS: BP 121/75
== END 2016-12-24 00:50 | disposition home health service (06) ==
LOC: ER 18:37
DX: E11.649 Type 2 diabetes mellitus with hypoglycemia without coma (principal); I10 Essential (primary) hypertension; Z88.0 Allergy status to penicillin
CPT/HCPCS: 99283; 96374; 36415; 82962; 80053; J3490

== ENCOUNTER 2017-01-14 13:06 | Inpatient (IN) | payer MEDICARE, OTHER ==
--- NOTE | 2017-01-14 14:09 | ER Document Report ---
ED General - General Chief Complaint: Probable Seizure Stated Complaint: POSSIBLE SEIZURE Time Seen by Provider: 01/14/17 14:09 Notes: 81-year-old female patient with dementia from long-term to the emergency department for evaluation for possible seizure and altered mental status. Possible seizure has patient lost bowel and bladder function while sitting in a chair at the long-term. No obvious seizure was noted but patient does have a history of seizures. No reported fevers. TRAVEL OUTSIDE OF THE [place] IN LAST 30 DAYS: No - HPI Onset: Just prior to arrival - Related Data Allergies/Adverse Reactions: Penicillins Allergy (Verified 10/27/16 09:36) Past Medical History - General Information source: Transfer Record, Outside Facility Records Cannot obtain history due to: Dementia - Social History Smoking Status: Never Smoker Frequency of alcohol use: None Drug Abuse: None Family History: Reviewed & Not Pertinent Patient has suicidal ideation: No Patient has homicidal ideation: No - Past Medical History Cardiac Medical History: Reports: Hx Hypercholesterolemia, Hx Hypertension Endocrine Medical History: Reports: Hx Diabetes Mellitus Type 2 Renal/ Medical History: Denies: Hx Peritoneal Dialysis Psychiatric Medical History: Reports: Hx Dementia, Hx Depression Past Surgical History: Reports: Hx Appendectomy, Hx Section - x 2, Hx Cholecystectomy - Immunizations Hx Diphtheria, Pertussis, Tetanus Vaccination: Yes Hx Pneumococcal Vaccination: 07/09/11 Review of Systems - Review of Systems -: Yes ROS unobtainable due to patient's medical condition - Patient has dementia Physical Exam - Vital signs Vitals: Temp Pulse Resp BP Pulse Ox 98.1 F 66 20 143/61 H 99 01/14/17 13:20 01/14/17 13:20 01/14/17 13:20 01/14/17 13:20 01/14/17 13:20 Interpretation: Normal - General General appearance: Appears well, Alert - HEENT Head: Normocephalic, Atraumatic Eyes: Normal Pupils: PERRL - Respiratory Respiratory status: No respiratory distress Chest status: Nontender Breath sounds: Normal Chest palpation: Normal - Cardiovascular Rhythm: Regular Heart sounds: Normal auscultation Murmur: No - Abdominal Inspection: Normal Distension: No distension Bowel sounds: Normal Tenderness: Nontender Organomegaly: No organomegaly - Back Back: Normal, Nontender - Extremities General upper extremity: Normal inspection, Nontender, Normal color, Normal ROM , Normal temperature General lower extremity: Normal inspection, Nontender, Normal color, Normal ROM , Normal temperature, Normal weight bearing. No: Oswaldo's sign - Neurological Neuro grossly intact: Yes Cognition: Short term memory loss Chama Coma Scale Eye Opening: Spontaneous Chama Coma Scale Motor: Obeys Commands Speech: Normal Motor strength normal: LUE, RUE, LLE, RLE Sensory: Normal - Psychological Associated symptoms: Normal affect, Normal mood - Skin Skin Temperature: Warm Skin Moisture: Dry Skin Color: Normal Course - Re-evaluation Re-evalutation: 01/14/17 16:22 81-year-old female with history of seizures. On Keppra. Will check for sources of possible infection. Will check sodium. CT head. Observation and reassessment. Initial blood sugar low at 62 so we will give a half of amp of D50, IV fluids and reassess. 01/14/17 16:35 We will admit to the hospital at this time. Consulted hospitalist. Dr. rudolph to admit numbers have been notified as well. - Vital Signs Vital signs: Temp Pulse Resp BP Pulse Ox 98.1 F 66 20 171/55 H 99 01/14/17 13:20 01/14/17 13:20 01/14/17 16:01 01/14/17 16:01 01/14/17 16:01 - Laboratory Result Diagrams: 01/14/17 13:35 01/14/17 13:35 Laboratory results interpreted by me: 01/14/17 01/14/17 01/14/17 13:35 13:35 14:45 WBC 14.4 H Hgb 11.4 L Hct 34.6 L RDW 14.2 H Seg Neutrophils % 79.1 H Monocytes % 2.6 L Absolute Neutrophils 11.4 H Sodium 147.4 H Chloride 109 H BUN 26 H Glucose 65 L Alkaline Phosphatase 131 H Total Protein 8.4 H Ur Leukocyte Esterase LARGE H - EKG Interpretation by Vt EKG shows normal: Sinus rhythm, [place], Intervals, QRS Complexes, ST-T Waves Discharge - Discharge Clinical Impression: Hypoglycemia associated with diabetes, Seizure Urinary tract infection Qualifiers: Urinary tract infection type: site unspecified Hematuria presence: without hematuria Qualified Code(s): N39.0 - Urinary tract infection, site not specified Disposition: ADMITTED INPATIENT Admitting Provider: Hospitalist - Jyoti
[2017-01-14 14:45] LABS: ABSOLUTE EOSINOPHILS # (AUTO) 0.2 10^3/uL (0.0-0.6); ABSOLUTE LYMPHOCYTES (AUTO) 2.4 10^3/uL (0.5-4.7); ABSOLUTE MONOCYTES (AUTO) 0.4 10^3/uL (0.1-1.4); ABSOLUTE NEUT (AUTO) 11.4 10^3/uL (1.7-8.2); BASOPHILS % (AUTO) 0.3 % (0-2); EOSINOPHILS % (AUTO) 1.3 % (0-6); HEMATOCRIT 34.6 % (36.0-47.0); HEMOGLOBIN 11.4 g/dL (12.0-15.5); HGB HCT DIFFERENCE -0.4; LYMPHOCYTES % (AUTO) 16.7 % (13-45); MEAN CORPUSCULAR HEMOGLOBIN 30.2 pg (27.0-33.4); MEAN CORPUSCULAR HGB CONC 33.1 g/dL (32.0-36.0); MEAN CORPUSCULAR VOLUME 91 fl (80-97); MONOCYTES % (AUTO) 2.6 % (3-13); RED BLOOD COUNT 3.78 10^6/uL (3.72-5.28); RED CELL DISTRIBUTION WIDTH 14.2 % (11.5-14.0); SEGMENTED NEUTROPHILS % (AUTO) 79.1 % (42-78); WHITE BLOOD COUNT 14.4 10^3/uL (4.0-10.5)
--- NOTE | 2017-01-14 14:49 | RADIOLOGY REPORT (SQ) ---
EXAM DESCRIPTION: CT HEAD WITHOUT COMPLETED DATE/TIME: 01/14/2017 2:30 pm REASON FOR STUDY: altered COMPARISON: 12/23/2016 TECHNIQUE: Axial images acquired through the brain without intravenous contrast. Images reviewed wi th bone, brain and subdural windows. Images stored on PACS. All CT scanners at this facility use dose modulation, iterative reconstruction, and/or weight based d osing when appropriate to reduce radiation dose to as low as reasonably achievable (ALARA). [facility]: Dose Right [facility]: CareDose [facility]: Dose Right [facility]: Teradose 4D [facility]: Smart Technologies RADIATION DOSE: Up-to-date CT equipment and radiation dose reduction techniques were employed. CTDIv ol: 64.6 mGy. DLP: 1163 mGy-cm. mGy. LIMITATIONS: None. FINDINGS: VENTRICLES: Prominent ventricles secondary to involutional atrophy. CEREBRUM: No masses. No hemorrhage. No midline shift. No evidence for acute infarction. Areas of l ow density in the white matter most likely chronic small vessel ischemic changes. Mild cortical atro phy is present. CEREBELLUM: No masses. No hemorrhage. No alteration of density. No evidence for acute infarction. EXTRAAXIAL SPACES: No fluid collections. No masses. ORBITS AND GLOBE: No intra- or extraconal masses. Normal contour of globe without masses. CALVARIUM: No fracture. PARANASAL SINUSES: No fluid or mucosal thickening. SOFT TISSUES: No mass or hematoma. OTHER: No other significant finding. IMPRESSION: Involutional changes of aging with chronic microvascular ischemia and no acute intracran ial findings. EVIDENCE OF ACUTE STROKE: NO. COMMENT: Quality ID # [id number]: Final reports with documentation of one or more dose reduction techniques (e.g., Automated exposure control, adjustment of the mA and/or kV according to patient size, use of iterative reconstruction technique) TECHNICAL DOCUMENTATION: JOB ID: [id number] [employer]- All Rights Reserved
[2017-01-14 14:50] LABS: ALANINE AMINOTRANSFERASE 25 U/L (9-52); ALBUMIN 4.7 g/dL (3.5-5.0); ALKALINE PHOSPHATASE 131 U/L (38-126); ANION GAP 15 (5-19); ASPARTATE AMINO TRANSFERASE 26 U/L (14-36); BILIRUBIN,DIRECT 0.4 mg/dL (0.0-0.4); BILIRUBIN,TOTAL 0.7 mg/dL (0.2-1.3); BLOOD UREA NITROGEN 26 mg/dL (7-20); CALCIUM 9.7 mg/dL (8.4-10.2); CARBON DIOXIDE 23 mmol/L (22-30); CHLORIDE 109 mmol/L (98-107); GLUCOSE 65 mg/dL (75-110); POTASSIUM 4.7 mmol/L (3.6-5.0); SODIUM 147.4 mmol/L (137-145); TOTAL PROTEIN 8.4 g/dL (6.3-8.2)
[2017-01-14 15:43] LABS: APPEARANCE,URINE CLOUDY; BILIRUBIN,URINE NEGATIVE (NEGATIVE); GLUCOSE, URINE NEGATIVE (NEGATIVE); KETONES,URINE NEGATIVE (NEGATIVE); LEUKOCYTE ESTERASE,URINE LARGE (NEGATIVE); NITRITE,URINE NEGATIVE (NEGATIVE); PROTEIN,URINE NEGATIVE (NEGATIVE); URINE SPECIFIC GRAVITY 1.011; UROBILINOGEN,URINE NEGATIVE mg/dL (<2.0)
[2017-01-14] MEDS ORDERED: CIPROFLOXACIN HCL 500 MG TABLET PO ONE (16:04)
[2017-01-14] MEDS ORDERED: DEXTROSE 50%-WATER 25 GM/50 ML DISP.SYRIN IV ONE (16:04)
[2017-01-14] MEDS ORDERED: NORMAL SALINE 500 ML IV ONE (16:06)
[2017-01-14] MEDS ORDERED: DEXTROSE 5%-1/2 NORMAL SALINE 1,000 ML IV PRN (17:08)
[2017-01-14] MEDS ORDERED: ACETAMINOPHEN 325 MG TABLET PO PRN (17:08)
[2017-01-14] MEDS ORDERED: ONDANSETRON HCL INJ/PF 4 MG/2 ML SDV IV PRN (17:08)
[2017-01-14] MEDS ORDERED: GLUCAGON,HUMAN RECOMB 1 MG INJ IM PRN (17:25)
[2017-01-14] MEDS ORDERED: DEXTROSE 40% GEL 15 GM TUBE PO PRN ×2 (17:25)
[2017-01-14] MEDS ORDERED: DEXTROSE 50%-WATER 25 GM/50 ML DISP.SYRIN IV PRN ×2 (17:25)
[2017-01-14] MEDS ORDERED: SULFAMETHOXAZOLE/TRIMETHOPRIM 800-160 MG TABLET PO ONE (18:00)
[2017-01-14] MEDS ORDERED: HYDRALAZINE HCL INJ/PF 20 MG/1 ML SDV IV PRN (18:37)
[2017-01-14] MEDS ORDERED: LEVETIRACETAM ORAL SOLN 500 MG/5 ML UDCUP ONE (22:53)
[2017-01-14] MEDS: LEVETIRACETAM ORAL SOLN 500 MG/5 ML UDCUP PO SCH (23:21)
[2017-01-15 05:55] LABS: HEMATOCRIT 24.3 % (36.0-47.0); HGB HCT DIFFERENCE 0.9; MEAN CORPUSCULAR HEMOGLOBIN 31.2 pg (27.0-33.4); MEAN CORPUSCULAR HGB CONC 34.5 g/dL (32.0-36.0); MEAN CORPUSCULAR VOLUME 90 fl (80-97); RED BLOOD COUNT 2.69 10^6/uL (3.72-5.28); RED CELL DISTRIBUTION WIDTH 13.9 % (11.5-14.0); WHITE BLOOD COUNT 10.9 10^3/uL (4.0-10.5)
[2017-01-15] MEDS: SULFAMETHOXAZOLE/TRIMETHOPRIM 800-160 MG TABLET PO SCH ×2 (06:01→17:38)
[2017-01-15 06:04] LABS: HEMOGLOBIN 8.4 g/dL (12.0-15.5)
[2017-01-15] MEDS: LEVETIRACETAM ORAL SOLN 500 MG/5 ML UDCUP PO SCH (10:39)
[2017-01-15] MEDS ORDERED: GLUCAGON,HUMAN RECOMB 1 MG INJ IM PRN (11:19)
[2017-01-15] MEDS ORDERED: DEXTROSE 40% GEL 15 GM TUBE PO PRN ×2 (11:19)
[2017-01-15] MEDS ORDERED: DEXTROSE 50%-WATER 25 GM/50 ML DISP.SYRIN IV PRN ×2 (11:19)
[2017-01-15] MEDS ORDERED: ALPRAZOLAM 0.5 MG TABLET PO PRN (11:20)
--- NOTE | 2017-01-15 11:43 | EKG REPORT ---
SEVERITY:- BORDERLINE ECG - SINUS RHYTHM BORDERLINE R WAVE PROGRESSION, ANTERIOR LEADS : Confirmed by: Jaylan Fox 15-Jan-2017 11:43:17
[2017-01-15] MEDS: INSULIN LISPRO 100 UNIT/ML 3 ML VIAL SUBCUT PRN (17:38)
[2017-01-15] MEDS: SIMVASTATIN 40 MG TABLET PO SCH (21:48)
[2017-01-15] MEDS: LEVETIRACETAM 500 MG TABLET PO SCH (21:48)
[2017-01-15] MEDS: SERTRALINE HCL 50 MG TABLET PO SCH (21:49)
[2017-01-16] MEDS: INSULIN LISPRO 100 UNIT/ML 3 ML VIAL SUBCUT PRN (00:08)
[2017-01-16] MEDS: SULFAMETHOXAZOLE/TRIMETHOPRIM 800-160 MG TABLET PO SCH ×2 (06:07→17:33)
[2017-01-16] MEDS: INSULIN LISPRO 100 UNIT/ML 3 ML VIAL SUBCUT SCH ×3 (10:21→22:17)
[2017-01-16] MEDS: LEVETIRACETAM 500 MG TABLET PO SCH ×2 (10:25→22:18)
[2017-01-16] MEDS: LISINOPRIL 10 MG TABLET PO SCH (10:25)
[2017-01-16] MEDS: AMLODIPINE BESYLATE 2.5 MG TABLET PO SCH (10:26)
[2017-01-16] MEDS ORDERED: TAMSULOSIN HCL 0.4 MG CAP.SR.24H PO SCH (18:00)
[2017-01-16] MEDS: SERTRALINE HCL 50 MG TABLET PO SCH (22:17)
[2017-01-16] MEDS: SIMVASTATIN 40 MG TABLET PO SCH (22:17)
[2017-01-17] MEDS: SULFAMETHOXAZOLE/TRIMETHOPRIM 800-160 MG TABLET PO SCH (05:22)
[2017-01-17 08:06] LABS: ABSOLUTE EOSINOPHILS # (AUTO) 0.3 10^3/uL (0.0-0.6); ABSOLUTE LYMPHOCYTES (AUTO) 1.5 10^3/uL (0.5-4.7); ABSOLUTE MONOCYTES (AUTO) 0.4 10^3/uL (0.1-1.4); ABSOLUTE NEUT (AUTO) 5.7 10^3/uL (1.7-8.2); BASOPHILS % (AUTO) 0.5 % (0-2); EOSINOPHILS % (AUTO) 3.6 % (0-6); HEMATOCRIT 25.3 % (36.0-47.0); HEMOGLOBIN 8.7 g/dL (12.0-15.5); HGB HCT DIFFERENCE 0.8; LYMPHOCYTES % (AUTO) 18.8 % (13-45); MEAN CORPUSCULAR HEMOGLOBIN 30.6 pg (27.0-33.4); MEAN CORPUSCULAR HGB CONC 34.3 g/dL (32.0-36.0); MEAN CORPUSCULAR VOLUME 89 fl (80-97); MONOCYTES % (AUTO) 5.3 % (3-13); RED BLOOD COUNT 2.83 10^6/uL (3.72-5.28); RED CELL DISTRIBUTION WIDTH 13.6 % (11.5-14.0); SEGMENTED NEUTROPHILS % (AUTO) 71.8 % (42-78); WHITE BLOOD COUNT 7.9 10^3/uL (4.0-10.5)
[2017-01-17] MEDS: AMLODIPINE BESYLATE 2.5 MG TABLET PO SCH (09:45)
[2017-01-17] MEDS: LEVETIRACETAM 500 MG TABLET PO SCH (09:46)
[2017-01-17] MEDS: LISINOPRIL 10 MG TABLET PO SCH (09:46)
[2017-01-17] MEDS: INSULIN LISPRO 100 UNIT/ML 3 ML VIAL SUBCUT SCH ×2 (09:47→12:28)
--- NOTE | 2017-01-17 11:54 | Physician Advisory Note ---
Physician Advisor ProgressNote .: Pursuant to the plan for [facility], I have reviewed the medical record for this patient. Physician Advisor Statement: Please document: 1. Medical necessity for Inpatient status: Medicare pt, has spent 2MNs in hospital, but needs documentation of clinical reasons pt needed to be in hospital each midnight, why pt couldn't be sent "home " on 01/15 or 01/16. Ex: "I AM CONCERNED ABOUT ", "Pt's mental status/ not back to baseline", ... 2. Need H&Ps on charts within 24 hrs of admission. 3. Suspected reason for the altered mental status. 4. "Cerebrovascular atherosclerotic disease" Thanks! CK
--- NOTE | 2017-01-17 14:54 | PDOC H&P ---
History of Present Illness Admission Date/PCP: 01/14/17 18:00 Patient complains of: Possible seizure, hypoglycemia History of Present Illness: JESUS URIAS is a 81 year old female who resides at a custodial. She has a history of dementia, seizure disorder, diabetes, hypertension. She was brought today possibly following a seizure. Patient also found to have what looks like a UTI. Patient also hypoglycemic. Upon reviewing patient's medications she is on 3 anti-hyperglycemics and 1 of them be insulin. Patient does not give much history at this time. In the ED patient was found to be awake but minimally interactive. Patient did have a leukocytosis of 14,000 and it appears that the urine is the source of the infection. Patient was given a dose of Cipro in the ED. Hospitalist called to admit patient for further management of her conditions. Past Medical History Cardiac Medical History: Reports: Hyperlipidema, Hypertension Denies: Congestive Heart Failure, Myocardial Infarction Pulmonary Medical History: Denies: Asthma, Bronchitis, Chronic Obstructive Pulmonary Disease (COPD), Pneumonia, Tuberculosis Neurological Medical History: Reports: Seizures Endocrine Medical History: Reports: Diabetes Mellitus Type 2 Renal/ Medical History: Denies: End Stage Renal Disease GI Medical History: Denies: Cirrhosis, Gastroesophageal Reflux Disease Musculoskeltal Medical History: Denies: Arthritis Psychiatric Medical History: Reports: Dementia, Depression Denies: Bipolar Disorder Hematology: Denies: Anemia, Bleeding Tendencies Past Surgical History Past Surgical History: Reports: Appendectomy, Section - x 2, Cholecystectomy Social History Information Source: [facility] Records Smoking Status: Unknown if Ever Smoked Frequency of Alcohol Use: None Hx Recreational Drug Use: No Hx Prescription Drug Abuse: No - Advance Directive Resuscitation Status: Full Code Family History Family History: Other - Patient not able to provide history Parental Family History Reviewed: No Children Family History Reviewed: No Sibling(s) Family History Reviewed.: No Medication/Allergy Home Medications: Alprazolam [Xanax 0.5 mg Tablet] 0.5 mg PO Q8HP PRN 01/14/17 Amlodipine Besylate [Norvasc 2.5 mg Tablet] 2.5 mg PO DAILY 01/14/17 Cholecalciferol (Vitamin D3) [Vitamin D3] 2,000 unit PO DAILY 01/14/17 Famotidine [Pepcid 20 mg Tablet] 20 mg PO Q12 01/14/17 Insulin Aspart [Novolog Flexpen] 0 unit SQ .SLIDING SCALE 01/14/17 Levetiracetam [Keppra 500 mg Tablet] 500 mg PO Q12 01/14/17 Lisinopril [Prinivil 10 mg Tablet] 10 mg PO DAILY 01/14/17 Metformin HCl [Metformin HCl ER] 500 mg PO Q12 01/14/17 Mineral Oil/Petrolatum,White [Eucerin Cream 114 gm] 1 applic TOP BID 01/14/17 Multivitamin [Multivitamins] 1 cap PO DAILY 01/14/17 Sertraline HCl [Zoloft 50 mg Tablet] 75 mg PO QHS 01/14/17 Simvastatin [Zocor 40 mg Tablet] 40 mg PO QHS 01/14/17 Sulfamethoxazole/Trimethoprim [Bactrim Ds Tablet] 1 each PO BID 2 Days #4 tablet 01/17/17 Allergies/Adverse Reactions: Penicillins Allergy (Verified 10/27/16 09:36) Review of Systems ROS unobtainable: Due to mental status Physical Exam Vital Signs: On examination patient blood pressure was 127/42 temperature 98.7 pulse 71 respirations 19 satting 97% General appearance: PRESENT: no acute distress, well-developed, well-nourished Head exam: PRESENT: atraumatic, normocephalic Eye exam: PRESENT: conjunctiva pink, EOMI, PERRLA. ABSENT: scleral icterus Ear exam: PRESENT: normal external ear exam Mouth exam: PRESENT: dry mucosa, moist Teeth exam: PRESENT: poor dentation Neck exam: ABSENT: carotid bruit, JVD, lymphadenopathy, thyromegaly Respiratory exam: PRESENT: clear to auscultation kimmy. ABSENT: rales, rhonchi, wheezes Cardiovascular exam: PRESENT: RRR. ABSENT: diastolic murmur, rubs, systolic murmur Pulses: PRESENT: normal dorsalis pedis pul Vascular exam: PRESENT: normal capillary refill GI/Abdominal exam: PRESENT: normal bowel sounds, soft. ABSENT: distended, guarding, mass, organolmegaly, rebound, tenderness Rectal exam: PRESENT: deferred Extremities exam: PRESENT: full ROM. ABSENT: calf tenderness, clubbing, pedal edema Neurological exam: PRESENT: alert, awake, oriented to person, other - patient moving all extremities. ABSENT: motor sensory deficit Psychiatric exam: PRESENT: appropriate affect, normal mood. ABSENT: homicidal ideation, suicidal ideation Skin exam: PRESENT: dry, intact, warm. ABSENT: cyanosis, rash Results Laboratory Results: Impressions: Head CT 01/14/17 14:18 IMPRESSION: Involutional changes of aging with chronic microvascular ischemia and no acute intracranial findings. EVIDENCE OF ACUTE STROKE: NO. Assessment & Plan - Diagnosis (1) Metabolic encephalopathy Is this a current diagnosis for this admission?: Yes Plan: Posssibly due to UTI and hypoglycemia. Will treat UTI and hypoglycemia. Mentation should improve with treatment of the mentioned conditions. (2) Hypoglycemia associated with diabetes Is this a current diagnosis for this admission?: Yes Plan: Patient on 3 anti-hyperglycemics. Will hold all antihyperglycemics and monitor blood glucose. (4) UTI (urinary tract infection) Qualifiers: Urinary tract infection type: site unspecified Hematuria presence: without hematuria Qualified Code(s): N39.0 - Urinary tract infection, site not specified Is this a current diagnosis for this admission?: Yes Plan: Will start paitent on batrium and follow urine culture. (5) Dementia Is this a current diagnosis for this admission?: Yes Plan: Worsened by UTI and hypoglycemia. Treat underlying conditions. (6) Seizure disorder Is this a current diagnosis for this admission?: Yes Plan: Will resume keppra and place patient on seizure precautions. Patient awake and alert. Seizure may have resulted from patient having acute infection and or hypoglycemia. - Time Time Spent: 30 to 50 Minutes Anticipated discharge: Home Within: within 48 hours - Inpatient Certification Medical Necessity: Need For IV Fluids
--- NOTE | 2017-01-17 15:26 | PDOC PROGRESS REPORT ---
Subjective Progress Note for:: 01/15/17 Subjective:: Patient is a 81 year old female who presented with AMS precipitated by UTI and hypoglycemia. Patient is currently doing better. Patient is awake alert and active. She is following commands and feeding herself. Physical Exam Vital Signs: Vitals: blood [id number] temperature 98.9 pulse 74 respirations 16 pulse ox 95 General appearance: PRESENT: no acute distress, well-developed, well-nourished Head exam: PRESENT: normocephalic Eye exam: PRESENT: EOMI. ABSENT: scleral icterus Ear exam: PRESENT: normal external ear exam Mouth exam: PRESENT: moist Teeth exam: PRESENT: poor dentation Neck exam: ABSENT: carotid bruit, JVD, lymphadenopathy, thyromegaly Respiratory exam: PRESENT: clear to auscultation kimmy. ABSENT: rales, rhonchi, wheezes Cardiovascular exam: PRESENT: RRR. ABSENT: diastolic murmur, rubs, systolic murmur Pulses: PRESENT: normal dorsalis pedis pul Vascular exam: PRESENT: normal capillary refill GI/Abdominal exam: PRESENT: normal bowel sounds, soft. ABSENT: distended, guarding, mass, organolmegaly, rebound, tenderness Rectal exam: PRESENT: deferred Extremities exam: PRESENT: full ROM. ABSENT: calf tenderness, clubbing, pedal edema Neurological exam: PRESENT: alert, awake, oriented to person, CN II-XII grossly intact. ABSENT: motor sensory deficit Psychiatric exam: PRESENT: appropriate affect, normal mood. ABSENT: homicidal ideation, suicidal ideation Skin exam: PRESENT: dry, intact, warm. ABSENT: cyanosis, rash Results Laboratory Results: 01/17/17 07:32 01/17/17 07:32 WBC 7.9 RBC 2.83 L Hgb 8.7 L Hct 25.3 L MCV 89 MCH 30.6 MCHC 34.3 RDW 13.6 Plt Count 187 Seg Neutrophils % 71.8 Lymphocytes % 18.8 Monocytes % 5.3 Eosinophils % 3.6 Basophils % 0.5 Absolute Neutrophils 5.7 Absolute Lymphocytes 1.5 Absolute Monocytes 0.4 Absolute Eosinophils 0.3 Absolute Basophils 0.0 Impressions: Head CT 01/14/17 14:18 IMPRESSION: Involutional changes of aging with chronic microvascular ischemia and no acute intracranial findings. EVIDENCE OF ACUTE STROKE: NO. Assessment & Plan - Diagnosis (1) Metabolic encephalopathy Is this a current diagnosis for this admission?: Yes Plan: Posssibly due to UTI and hypoglycemia. Will treat UTI and hypoglycemia. Improving. (2) Hypoglycemia associated with diabetes Is this a current diagnosis for this admission?: Yes Plan: Patient on 3 anti-hyperglycemics. Blood glucose improved. Will use SSI. (4) UTI (urinary tract infection) Qualifiers: Urinary tract infection type: site unspecified Hematuria presence: without hematuria Qualified Code(s): N39.0 - Urinary tract infection, site not specified Is this a current diagnosis for this admission?: Yes Plan: Continue bactrium and follow up urine cultures. (5) Dementia Is this a current diagnosis for this admission?: Yes Plan: Stable. Continue home medications. (6) Seizure disorder Is this a current diagnosis for this admission?: Yes Plan: Continue keppra. No more seizures activity noted. Continue precautions. - Time Time Spent with patient: Less than 15 minutes Anticipated discharge: SNF Within: within 36 hours
--- NOTE | 2017-01-17 15:30 | PDOC PROGRESS REPORT ---
Subjective Progress Note for:: 01/16/17 Subjective:: Patient is a 81 year old female who presented with AMS precipitated by UTI and hypoglycemia. Patient doing better. Patient with some urinary retention and had matamoros placed. Physical Exam Vital Signs: Temp Pulse Resp BP Pulse Ox 97.7 F 65 21 H 115/72 96 01/17/17 14:24 01/17/17 14:24 01/17/17 14:24 01/17/17 14:24 01/17/17 14:24 Intake & Output 01/16/17 01/17/17 01/18/17 06:59 06:59 06:59 Intake Total 660 360 Output Total 1125 260 Balance -465 100 Weight 59.7 kg General appearance: PRESENT: no acute distress, well-developed, well-nourished Head exam: PRESENT: normocephalic Eye exam: PRESENT: EOMI. ABSENT: scleral icterus Mouth exam: PRESENT: moist Neck exam: ABSENT: carotid bruit, JVD, lymphadenopathy, thyromegaly Respiratory exam: PRESENT: clear to auscultation kimmy. ABSENT: rales, rhonchi, wheezes Cardiovascular exam: PRESENT: RRR. ABSENT: diastolic murmur, rubs, systolic murmur GI/Abdominal exam: PRESENT: normal bowel sounds, soft. ABSENT: distended, guarding, mass, organolmegaly, rebound, tenderness Rectal exam: PRESENT: deferred Extremities exam: PRESENT: full ROM. ABSENT: calf tenderness, clubbing, pedal edema Neurological exam: PRESENT: alert, awake, oriented to person, CN II-XII grossly intact. ABSENT: motor sensory deficit Psychiatric exam: PRESENT: appropriate affect, normal mood. ABSENT: homicidal ideation, suicidal ideation Skin exam: PRESENT: dry, intact, warm. ABSENT: cyanosis, rash Results Laboratory Results: 01/17/17 07:32 01/17/17 07:32 WBC 7.9 RBC 2.83 L Hgb 8.7 L Hct 25.3 L MCV 89 MCH 30.6 MCHC 34.3 RDW 13.6 Plt Count 187 Seg Neutrophils % 71.8 Lymphocytes % 18.8 Monocytes % 5.3 Eosinophils % 3.6 Basophils % 0.5 Absolute Neutrophils 5.7 Absolute Lymphocytes 1.5 Absolute Monocytes 0.4 Absolute Eosinophils 0.3 Absolute Basophils 0.0 Impressions: Head CT 01/14/17 14:18 IMPRESSION: Involutional changes of aging with chronic microvascular ischemia and no acute intracranial findings. EVIDENCE OF ACUTE STROKE: NO. Assessment & Plan - Diagnosis (1) Metabolic encephalopathy Is this a current diagnosis for this admission?: Yes Plan: Posssibly due to UTI and hypoglycemia. Now resolved. (2) Hypoglycemia associated with diabetes Is this a current diagnosis for this admission?: Yes Plan: Patient on 3 anti-hyperglycemics. Hypoglycemia resolved. Continue SSI. (3) UTI (urinary tract infection) Qualifiers: Urinary tract infection type: site unspecified Hematuria presence: without hematuria Qualified Code(s): N39.0 - Urinary tract infection, site not specified Is this a current diagnosis for this admission?: Yes Plan: Ecoli UTI on bactrium. (4) Dementia Is this a current diagnosis for this admission?: Yes Plan: Stable. Continue home medications. (5) Seizure disorder Is this a current diagnosis for this admission?: Yes Plan: Continue keppra. No more seizures activity noted. Continue precautions. (6) Urinary retention Is this a current diagnosis for this admission?: Yes Plan: Matamoros in placed. Patient started on flomax. - Time Time Spent with patient: Less than 15 minutes Anticipated discharge: SNF Within: within 24 hours
--- NOTE | 2017-01-17 15:39 | PDOC DISCHARGE SUMMARY ---
General - Admit/Disc Date/PCP Admission Date/Primary Care Provider: 01/16/17 08:37 Discharge Date: 01/17/17 - Discharge Diagnosis (1) Metabolic encephalopathy Is this a current diagnosis for this admission?: Yes (2) Hypoglycemia associated with diabetes Is this a current diagnosis for this admission?: Yes (3) UTI (urinary tract infection) Is this a current diagnosis for this admission?: Yes (4) Dementia Is this a current diagnosis for this admission?: Yes (5) Seizure disorder Is this a current diagnosis for this admission?: Yes (6) Urinary retention Is this a current diagnosis for this admission?: Yes - Additional Information Resuscitation Status: Full Code Discharge Diet: Diabetic Discharge Activity: Activity As Tolerated Home Medications: Alprazolam [Xanax 0.5 mg Tablet] 0.5 mg PO Q8HP PRN 01/14/17 Amlodipine Besylate [Norvasc 2.5 mg Tablet] 2.5 mg PO DAILY 01/14/17 Cholecalciferol (Vitamin D3) [Vitamin D3] 2,000 unit PO DAILY 01/14/17 Famotidine [Pepcid 20 mg Tablet] 20 mg PO Q12 01/14/17 Insulin Aspart [Novolog Flexpen] 0 unit SQ .SLIDING SCALE 01/14/17 Levetiracetam [Keppra 500 mg Tablet] 500 mg PO Q12 01/14/17 Lisinopril [Prinivil 10 mg Tablet] 10 mg PO DAILY 01/14/17 Metformin HCl [Metformin HCl ER] 500 mg PO Q12 01/14/17 Mineral Oil/Petrolatum,White [Eucerin Cream 114 gm] 1 applic TOP BID 01/14/17 Multivitamin [Multivitamins] 1 cap PO DAILY 01/14/17 Sertraline HCl [Zoloft 50 mg Tablet] 75 mg PO QHS 01/14/17 Simvastatin [Zocor 40 mg Tablet] 40 mg PO QHS 01/14/17 Sulfamethoxazole/Trimethoprim [Bactrim Ds Tablet] 1 each PO BID 2 Days #4 tablet 01/17/17 History of Present Illness History of Present Illness: JESUS URIAS is a 81 year old female [facility] She has a history of dementia, seizure disorder, diabetes, hypertension. She was brought today possibly following a seizure. Patient also found to have what looks like a UTI. Patient also hypoglycemic. Upon reviewing patient's medications she is on 3 anti-hyperglycemics and 1 of them be insulin. Patient does not give much history at this time. In the ED patient was found to be awake but minimally interactive. Patient did have a leukocytosis of 14,000 and it appears that the urine is the source of the infection. Patient was given a dose of Cipro in the ED. Hospitalist called to admit patient for further management of her conditions. Hospital Course Hospital Course: (1) Metabolic encephalopathy Posssibly due to UTI and hypoglycemia. Patient treated with D5 NS and monitored. Patient blood glucose has stabilized. Patient maintaining blood glucose. Now resolved. Patient also treated for UTI with bactrium. Patient mentation much improved. (2) Hypoglycemia associated with diabetes Patient on 3 anti-hyperglycemics. Patient may only need one. She will only need one. Patient can continue on metformin. (3) UTI (urinary tract infection) Ecoli UTI on bactrium. (4) Dementia Stable. Continue home medications. (5) Seizure disorder Continue keppra. No more seizures activity noted. Continue precautions. (6) Urinary retention Balderas discontinued on discharge and patient has voided. Physical Exam Vital Signs: Temp Pulse Resp BP Pulse Ox 97.7 F 65 21 H 115/72 96 01/17/17 14:24 01/17/17 14:24 01/17/17 14:24 01/17/17 14:24 01/17/17 14:24 Intake & Output 01/16/17 01/17/17 01/18/17 06:59 06:59 06:59 Intake Total 660 360 Output Total 1125 260 Balance -465 100 Weight 59.7 kg General appearance: PRESENT: no acute distress, well-developed, well-nourished Head exam: PRESENT: normocephalic Eye exam: PRESENT: EOMI. ABSENT: scleral icterus Ear exam: PRESENT: normal external ear exam Mouth exam: PRESENT: moist Neck exam: ABSENT: carotid bruit, JVD, lymphadenopathy, thyromegaly Respiratory exam: PRESENT: clear to auscultation kimmy. ABSENT: rales, rhonchi, wheezes Cardiovascular exam: PRESENT: RRR. ABSENT: diastolic murmur, rubs, systolic murmur Vascular exam: PRESENT: normal capillary refill GI/Abdominal exam: PRESENT: normal bowel sounds, soft. ABSENT: distended, guarding, mass, organolmegaly, rebound, tenderness Rectal exam: PRESENT: deferred Extremities exam: PRESENT: full ROM. ABSENT: calf tenderness, clubbing, pedal edema Neurological exam: PRESENT: alert, awake, oriented to person, CN II-XII grossly intact. ABSENT: motor sensory deficit Psychiatric exam: PRESENT: appropriate affect, normal mood. ABSENT: homicidal ideation, suicidal ideation Skin exam: PRESENT: dry, intact, warm. ABSENT: cyanosis, rash Results Laboratory Results: 01/17/17 07:32 01/17/17 07:32 WBC 7.9 RBC 2.83 L Hgb 8.7 L Hct 25.3 L MCV 89 MCH 30.6 MCHC 34.3 RDW 13.6 Plt Count 187 Seg Neutrophils % 71.8 Lymphocytes % 18.8 Monocytes % 5.3 Eosinophils % 3.6 Basophils % 0.5 Absolute Neutrophils 5.7 Absolute Lymphocytes 1.5 Absolute Monocytes 0.4 Absolute Eosinophils 0.3 Absolute Basophils 0.0 Impressions: Head CT 01/14/17 14:18 IMPRESSION: Involutional changes of aging with chronic microvascular ischemia and no acute intracranial findings. EVIDENCE OF ACUTE STROKE: NO. Qualifiers PATEINT BEING DISCHARGED WITH ANY OF THE FOLLOWING DIAGNOSIS?: No Plan Time Spent: Less than 30 Minutes
[2017-01-17 16:15] VITALS: BP 128/39
--- NOTE | 2017-01-18 10:30 | Physician Advisory Note ---
Physician Advisor ProgressNote .: [facility] for [facility]. Physician Advisor Statement: STatus review: Medicare pt. On 01/14, attending ordered D5 1/2 NS @100 to support glucose levels, continuing this 'til 01/15 late AM. She still needed to monitor FSBS levels off IVF support for 1 night to be sure pt was safe for d/c. On 01/14 PM, pt's MAP dropped as low as 65. Pt had tachypnea of 22 on 01/14 PM & 24 on 01/15 AM, so not yet fully hemodynamcally stable 01/15. On 01/15, pt's leukocytosis was improved but not yet resolved. Also on 01/15, attending started Septra po in place of the cipro given in ED, and needed to be sure pt tolerated this with continued drop in leukocytosis before d/c. On 01/15 PM, pt developed urinary retention requiring Balderas catheter. It was appropriate for attending to keep pt a 2nd midnight (01/15) due to these clinical concerns. Appropriate for Inpt Status change. CK
== END 2017-01-17 17:03 | disposition short-term general hospital (02) | DRG 689 ==
LOC: ER 13:06 → EH 16:45 → UNDOADMOB 16:45 → EH 17:02 → UNDOADMOB 17:02 → EH 17:09 → UNDOADMOB 17:09 → EH 20:34 → 4S 20:34 → INTOOBSV 01-16 08:37 → 4S 01-16 08:37 → OBSVTOIN 01-16 08:37 → EH 01-16 08:37 → 4W 01-17 08:10
PROVIDERS: ADMIT Hospitalist; ATTEND Hospitalist
DX: N39.0 Urinary tract infection, site not specified (principal); G93.41 Metabolic encephalopathy; E11.649 Type 2 diabetes mellitus with hypoglycemia without coma; F03.90 Unspecified dementia, unspecified severity, without behavioral disturbance, psychotic disturbance, mood disturbance, and anxiety; G40.909 Epilepsy, unspecified, not intractable, without status epilepticus; R33.9 Retention of urine, unspecified; I10 Essential (primary) hypertension; E78.5 Hyperlipidemia, unspecified; F32.9 Major depressive disorder, single episode, unspecified; Z90.79 Acquired absence of other genital organ(s); Z88.0 Allergy status to penicillin; Z79.4 Long term (current) use of insulin; Z79.899 Other long term (current) drug therapy
CPT/HCPCS: 36415; 51701; 70450; 80053; 80177; 81001; 82962; 83036; 84484; 85025; 85027; 87086; 87088; 87186; 93005; 93010; 99285; G0378; J1815; J3490